=== PATIENT | male | born 1990 | race American Indian/Alaskan Native ===

== ENCOUNTER 2018-12-29 12:16 | Emergency (ER) | payer BC ==
[2018-12-29 12:27] VITALS: BP 120/82
--- NOTE | 2018-12-29 12:27 | Emergency Department Report ---
Chief Complaint: Wound/Laceration Stated Complaint: CUT ON RT FOOT Time Seen by Provider: 12/29/18 12:24 - HPI History of Present Illness: Pt presents with a laceration to the right foot that occurred yesterday at 3 PM he states he kicked a desk had a tetanus last year has been ambulatory denies any foot pain no PMHx no daily meds no allergies to medication +smoker, 1PPD non drinker +marijuana no other drug use MSE screening note: Focused history and physical exam performed. ED Disposition for MSE Condition: Stable
[2018-12-29] MEDS ORDERED: BOOSTRIX IM ONE (13:41)
--- NOTE | 2018-12-29 14:03 | Emergency Department Report ---
ED Laceration HPI - HPI Chief Complaint: Wound/Laceration Stated Complaint: CUT ON RT FOOT Time Seen by Provider: 12/29/18 12:24 Occurred When: Yesterday (3 PM) Location: Lower Extremity Severity: mild Tetanus Status: Not up to Date Laceration Symptoms: Yes Pain, No Foreign Body Sensation, No Numbness, No Weakness Other History: This is a 28-year-old male nontoxic, well nourished in appearance, no acute signs of distress presents to the ED with c/o of right posterior great toe laceration that occurred yesterday around 3 PM. They stated that he kicked a desk which caused the laceration. Patient denies decreased sensation or range of motion. Patient stated bleeding is under control. Denies any numbness, tingling, fever, chills, nausea, vomiting, chest pain, shortness of breath, headache or stiff neck. Patient denies any allergies to significant past medical history. Patient is that he is not up-to-date with tetanus. ED Review of Systems ROS: Stated complaint: CUT ON RT FOOT Other details as noted in HPI Constitutional: denies: chills, fever Eyes: denies: eye pain, eye discharge, vision change ENT: denies: ear pain, throat pain Respiratory: denies: cough, shortness of breath, wheezing Cardiovascular: denies: chest pain, palpitations Endocrine: no symptoms reported Gastrointestinal: denies: abdominal pain, nausea, diarrhea Genitourinary: denies: urgency, dysuria Musculoskeletal: denies: back pain, joint swelling, arthralgia Skin: denies: rash, lesions Neurological: denies: headache, weakness, paresthesias Psychiatric: denies: anxiety, depression Hematological/Lymphatic: denies: easy bleeding, easy bruising ED Past Medical Hx - Past Medical History Previous Medical History?: No - Surgical History Past Surgical History?: No - Social History Smoking Status: Current Every Day Smoker Substance Use Type: Alcohol, Marijuana - Medications Home Medications: Home Medications Medication Instructions Recorded Confirmed Last Taken Type Acetaminophen/Codeine [Tylenol 1 tab PO Q6H PRN #12 tab 12/29/18 Unknown Rx /Codeine # 3 tab] Sulfamethoxazole/Trimethoprim 1 each PO BID #14 tablet 12/29/18 Unknown Rx [Bactrim DS TAB] Laceration Physical Exam - Exam General: Vital signs noted. No distress. Alert and acting appropriately. Wound Length (cm): 1 Laceration Location: Lower Extremity Laceration Exam: Yes Normal Distal CMS, No Foreign Body, No Exposed Tendon, Vessel, or Nerve, No Tendon Injury ED Course Vital Signs 12/29/18 12:25 Temperature 95.2 F L Pulse Rate 105 H Respiratory 18 Rate Blood Pressure 120/82 O2 Sat by Pulse 97 Oximetry - Reevaluation(s) Reevaluation #1: 12/29/18 14:00 Patient is speaking in full sentences with no signs of distress noted. ED Medical Decision Making - Medical Decision Making This is a 28-year-old male that presents with laceration. Patient is stable and was examined by me. Due to laceration being greater than 16 hours a laceration being very superficial I cleaned the laceration repair well with water, Betadine. X-ray has been obtained. Sterile dressing has been applied. Patient was educated on wound care. I did apply some Steri-Strips lightly approximate the laceration. Patient received a tetanus booster in the ER. Patient is discharged with antibiotics and pain medication. Patient was referred to Follow-up with a primary care doctor in 3-5 days or if symptoms worsen and continue return to emergency room as soon as possible. At time of discharge, the patient does not seem toxic or ill in appearance. No acute signs of distress noted. Patient agrees to discharge treatment plan of care. No further questions noted by the patient. Critical care attestation.: If time is entered above; I have spent that time in minutes in the direct care of this critically ill patient, excluding procedure time. ED Disposition Clinical Impression: Contusion of left great toe without damage to nail Qualifiers: Encounter type: initial encounter Qualified Code(s): S90.112A - Contusion of left great toe without damage to nail, initial encounter Disposition: DC-01 TO HOME OR SELFCARE Is pt being admited?: No Does the pt Need Aspirin: No Condition: Stable Instructions: Acute Wound Care (ED), Acetaminophen/Codeine (By mouth) Additional Instructions: Follow-up with a primary care doctor in 3-5 days or if symptoms worsen and continue return to emergency room as soon as possible. Prescriptions: Sulfamethoxazole/Trimethoprim [Bactrim DS TAB] 1 each PO BID #14 tablet Acetaminophen/Codeine [Tylenol /Codeine # 3 tab] 1 tab PO Q6H PRN #12 tab PRN Reason: Pain , Severe (7-10) Referrals: PRIMARY CARE, [Referring] - 3-5 Days MIKAYLA ESPINAL MD [Staff Physician] - 3-5 Days [facility] [Outside] - 3-5 Days [facility] [Outside] - 3-5 Days Forms: Work/School Release Form(ED)
--- NOTE | 2018-12-29 15:02 | XRay Report ---
PROCEDURE: XR FOOT 3+V RTO TECHNIQUE: 3 views of the right foot. HISTORY: RIGHT great toe pain with lac COMPARISON: None FINDINGS: There is no fracture seen. There is no dislocation seen. There is no focal osseous lesion identified. IMPRESSION: There is no acute abnormality identified. This document is electronically signed by Tanya Camargo MD., Dec 29 2018 03:00:35 PM ET
== END 2018-12-29 15:49 | disposition home or self-care (01) ==
LOC: ED 12:16
DX: S90.112A Contusion of left great toe without damage to nail, initial encounter (principal); F17.200 Nicotine dependence, unspecified, uncomplicated; F12.10 Cannabis abuse, uncomplicated; W22.09XA Striking against other stationary object, initial encounter; Y93.89 Activity, other specified; Y92.89 Other specified places as the place of occurrence of the external cause; Y99.8 Other external cause status
CPT/HCPCS: 90471; 90715